=== PATIENT | male | born 1995 | race African-American/Black ===

== ENCOUNTER 2016-12-29 14:35 | Emergency (ER) | payer OTHER ==
[~2016-12-29] VITALS: Ht 175.3 cm; Wt 79.4 kg
[~2016-12-29 14:35] MED LIST: CETI10TA22 PO; PRED50TA PO
[2016-12-29 14:45] VITALS: BP 124/59
--- NOTE | 2016-12-29 15:17 | RAD ---
Right hand, 3 views, 12/29/2016: History: Injury, pain No acute fracture or dislocation is identified. The soft tissues are unremarkable. IMPRESSION: No acute bony abnormality is detected.
[2016-12-29] MEDS ORDERED: DICL50TA4 PO (15:30)
--- NOTE | 2016-12-29 15:31 | PHYS DOC ---
Past Medical History Past Medical History: No Pertinent History Past Surgical History: No Surgical History Alcohol Use: None Drug Use: None Adult General Chief Complaint Chief Complaint: HAND PROBLEM HPI HPI Patient is a 21 year old male with no significant medical history who presents with mild right hand pain specifically on the knuckles that began after he jammed his hand playing basketball. Patient is right-handed Review of Systems Review of Systems Constitutional: Denies fever or chills [] Musculoskeletal: Right hand pain Integument: Denies rash or skin lesions [] Neurologic: Denies headache, focal weakness or sensory changes [] Endocrine: Denies polyuria or polydipsia [] Allergies Allergies Allergies Coded Allergies Type Severity Reaction Last Updated Verified No Known Drug Allergies 01/15/15 No Physical Exam Physical Exam Constitutional: Well developed, well nourished, no acute distress, non-toxic appearance. [] Skin: Warm, dry, no erythema, no rash. [] Back: No tenderness, no CVA tenderness. [] Extremities: Right hand with no obvious deformity, small amount of soft tissue swelling noted along the right hand knuckles. Tenderness on palpation diffusely on the right hand knuckles. Full range of motion to the right hand including flexion and extension at the MIP DIP and PIP joints. Adequate radial medial and ulnar sensation to the right hand. Cap refill less than 2 seconds the right hand. Sensation intact to the right hand. +2 right radial pulse. Neurologic: Alert and oriented X 3, normal motor function, normal sensory function, no focal deficits noted. [] Psychologic: Affect normal, judgement normal, mood normal. [] Current Patient Data Vital Signs Vital Signs Date Time Temp Pulse Resp B/P (MAP) Pulse Ox O2 Delivery O2 Flow Rate FiO2 12/29/16 14:45 98.1 57 16 98 Room Air 98.1 EKG EKG [] Radiology/Procedures Radiology/Procedures [] Course & Med Decision Making Course & Med Decision Making Pertinent Labs and Imaging studies reviewed. (See chart for details) Patient is in the ED with complaints of right hand pain after jamming it playing basketball. Right hand x-rays interpreted by radiologist were negative for any acute findings. Patient probably sprained his right hand. Ice elevation encouraged. Discharged with diclofenac Dragon Disclaimer Dragon Disclaimer This electronic medical record was generated, in whole or in part, using a voice recognition dictation system. Departure Departure Impression: Primary Impression: Sprain of right hand Disposition: HOME, SELF-CARE Condition: STABLE Referrals: NO PCP (PCP) JEANETTE GREENBERG II, MD Follow-up in one week Patient Instructions: Joint Sprain Additional Instructions: You were seen with right hand sprain. Ice and elevate the extremity. Take the prescribed medicine as needed. Follow-up with your doctor or the provided doctor in one week. Scripts Diclofenac Sodium (DICLOFENAC SODIUM) 50 Mg Tablet.dr 1 TAB PO BID, #60 TAB 1 Refill Prov: CARLOS ESTRADA APRN 12/29/16 Problem Qualifiers Primary Impression: Sprain of right hand Encounter type: initial encounter Qualified Codes: S63.91XA - Sprain of unspecified part of right wrist and hand, initial encounter CARLOS ESTRADA APRN Dec 29, 2016 15:31
== END 2016-12-29 15:42 | disposition home or self-care (01) ==
LOC: ER 14:35
DX: S63.91XA Sprain of unspecified part of right wrist and hand, initial encounter (principal); W23.0XXA Caught, crushed, jammed, or pinched between moving objects, initial encounter; Y93.67 Activity, basketball; Y92.89 Other specified places as the place of occurrence of the external cause; Y99.8 Other external cause status
CPT/HCPCS: 73130; 99284

== ENCOUNTER 2017-09-02 17:54 | Emergency (ER) | payer OTHER ==
[2017-09-02] MEDS: ONDANSETRON ODT 4 MG TAB.RAPDIS. PO (18:47)
== END 2017-09-02 19:40 | disposition home or self-care (01) ==
LOC: ER 17:54
DX: R11.2 Nausea with vomiting, unspecified (principal); R19.7 Diarrhea, unspecified
CPT/HCPCS: 99283; Q0162

== ENCOUNTER 2018-02-19 10:33 | Emergency (ER) | payer OTHER ==
[~2018-02-19] VITALS: Ht 172.7 cm; Wt 74.8 kg
[~2018-02-19 10:33] MED LIST changes: +DICL50TA4 PO; +ONDA4TAB10 SL
[2018-02-19 11:01] VITALS: BP 133/75
--- NOTE | 2018-02-19 11:33 | RAD ---
Right shoulder, 3 views, 02/19/2018: HISTORY: Shoulder injury No fracture or dislocation is identified. The periarticular soft tissues are unremarkable. IMPRESSION: No significant abnormality is detected. Electronically signed by: Pancho Rodriguez MD (02/19/2018 11:30 AM) [facility]
[2018-02-19] MEDS ORDERED: NAPR-514 PO (11:52)
--- NOTE | 2018-02-19 11:52 | PHYS DOC ---
Past Medical History Past Medical History: No Pertinent History Past Surgical History: No Surgical History Alcohol Use: Occasionally Drug Use: None Adult General Chief Complaint Chief Complaint: SHOULDER INJURY HPI HPI Patient is a 22 year old [place] male who presents to the emergency Department today with complaints of right shoulder pain for the last week. Patient states he locked himself out of his house and then tried to push through the door using his right shoulder to apply force the door. He denies any numbness, tingling, or weakness of the extremities. States he has full range of motion however his pain increases with range of motion. Currently reports his pain as 8 out of 10 on the pain scale. He has tried taking ibuprofen at home with little relief of his symptoms Review of Systems Review of Systems Musculoskeletal: Denies back pain; reports R shoulder pain Integument: Denies rash, edema, or skin lesions [] Neurologic: Denies focal weakness or sensory changes [] Allergies Allergies Allergies Coded Allergies Type Severity Reaction Last Updated Verified No Known Drug Allergies 01/15/15 No Physical Exam Physical Exam Constitutional: Well developed, well nourished, no acute distress, non-toxic appearance. [] HENT: Normocephalic, atraumatic, bilateral external ears normal, nose normal. [ ] Eyes: PERRLA, conjunctiva normal, no discharge. [] Neck: Normal range of motion, no tenderness, supple, no stridor. [] Skin: Warm, dry, no erythema, no rash. [] Back: No tenderness Extremities: no cyanosis, no clubbing, ROM intact, no edema, R shoulder tenderness over the AC joint [] Neurologic: Alert and oriented X 3, normal motor function, normal sensory function, no focal deficits noted. [] Psychologic: Affect normal, judgement normal, mood normal. [] Current Patient Data Vital Signs Vital Signs Date Time Temp Pulse Resp B/P (MAP) Pulse Ox O2 Delivery O2 Flow Rate FiO2 02/19/18 11:01 98.6 56 20 133/75 (94) 99 Room Air 98.6 EKG EKG [] Radiology/Procedures Radiology/Procedures ATIENT: KENTONJAY Gamez BACCOUNT: [id number]#: [id number] : 1995 LOCATION: ER AGE: 22 SEX: M EXAM STATUS: REG ER ORD. PHYSICIAN: AURA ECKERT APRN REASON: shoulder pain x1 wk after trying to break door open w/shoulder PROCEDURE: SHOULDER 2+V RIGHT Right shoulder, 3 views, 02/19/2018: HISTORY: Shoulder injury No fracture or dislocation is identified. The periarticular soft tissues are unremarkable. IMPRESSION: No significant abnormality is detected. Electronically signed by: Pancho Rodriguez MD (02/19/2018 11:30 AM) [facility] DICTATED and SIGNED BY: PANCHO RODRIGUEZ MD DATE: 02/19/18 1129 [] Course & Med Decision Making Course & Med Decision Making Pertinent Labs and Imaging studies reviewed. (See chart for details) Patient is 22-year-old male who presented to the emergency room with complaints of right shoulder pain for the last week. X-ray was negative for any acute findings. He was placed in a sling. A prescription was written for naproxen and pt was advised to follow up with Dr. Thompson for further evaluation and treatment. Patient verbalized an understanding of home care, medications, follow -up, and return to ED instructions and was in agreement with the plan of care.] Dragon Disclaimer Dragon Disclaimer This electronic medical record was generated, in whole or in part, using a voice recognition dictation system. Departure Departure Impression: Primary Impression: Right shoulder pain Additional Impression: Right shoulder strain Disposition: 01 HOME, SELF-CARE Condition: STABLE Referrals: UNKNOWN PCP NAME (PCP) MATTEO THOMPSON MD Patient Instructions: Shoulder Sprain Additional Instructions: May take Tylenol in addition to the medication prescribed as needed for pain. Recommend application of ice or heat to sore areas needed for relief of your discomfort. Wear the sling provided in the ER, encourage early mobilization of shoulder to prevent frozen shoulder syndrome. Follow up with orthopedics, Dr. Thompson's address and phone number have been provided,or your primary care doctor for further evaluation of pain. Return to the emergency room if your symptoms worsen. Scripts Naproxen (NAPROXEN) 500 Mg Tablet 500 MG PO BID for 10 Days, #20 TAB 0 Refills Prov: AURA ECKERT APRN 02/19/18 Problem Qualifiers Primary Impression: Right shoulder pain Chronicity: acute Qualified Codes: M25.511 - Pain in right shoulder Additional Impression: Right shoulder strain Encounter type: initial encounter Qualified Codes: S46.911A - Strain of unspecified muscle, fascia and tendon at shoulder and upper arm level, right arm , initial encounter AURA ECKERT [employer] BU[employer]DER Feb 19, 2018 11:52
== END 2018-02-19 12:15 | disposition home or self-care (01) ==
LOC: ER 10:33
DX: S46.911A Strain of unspecified muscle, fascia and tendon at shoulder and upper arm level, right arm, initial encounter (principal); X50.0XXA Overexertion from strenuous movement or load, initial encounter; Y93.89 Activity, other specified; Y92.098 Other place in other non-institutional residence as the place of occurrence of the external cause; Y99.8 Other external cause status
CPT/HCPCS: 73030; 99284

== ENCOUNTER 2018-07-08 09:20 | Emergency (ER) | payer OTHER ==
[~2018-07-08] VITALS: Ht 172.7 cm; Wt 72.6 kg
[~2018-07-08 09:20] MED LIST changes: +NAPR-514 PO
[2018-07-08 10:55] VITALS: BP 129/77
[2018-07-08] MEDS ORDERED: HYDROcodone/APAP 5/325MG 1 TAB TABLET PO ONE (11:00)
[2018-07-08] MEDS ORDERED: PENI500T PO (11:03)
[2018-07-08] MEDS ORDERED: HYDR-3164 PO (11:03)
--- NOTE | 2018-07-08 11:03 | PHYS DOC ---
Past Medical History Past Medical History: No Pertinent History Past Surgical History: No Surgical History Alcohol Use: Occasionally Drug Use: None Adult General Chief Complaint Chief Complaint: DENTAL PROBLEM HPI HPI Patient is a 22 year old male who presents with right lower facial swelling with right lower facial dental abscess x 2 weeks. Review of Systems Review of Systems Constitutional: Denies fever or chills [] Eyes: Denies change in visual acuity, redness, or eye pain [] HENT: Denies nasal congestion or sore throat [] Respiratory: Denies cough or shortness of breath [] Cardiovascular: No additional information not addressed in HPI [] GI: Denies abdominal pain, nausea, vomiting, bloody stools or diarrhea [] : Denies dysuria or hematuria [] Musculoskeletal: Denies back pain or joint pain [] Integument: Denies rash or skin lesions [] Neurologic: Denies headache, focal weakness or sensory changes [] Endocrine: Denies polyuria or polydipsia [] All other systems were reviewed and found to be within normal limits, except as documented in this note. Allergies Allergies Allergies Coded Allergies Type Severity Reaction Last Updated Verified No Known Drug Allergies 01/15/15 No Physical Exam Physical Exam Constitutional: Well developed, well nourished, no acute distress, non-toxic appearance. [] HENT: Normocephalic, atraumatic, bilateral external ears normal, oropharynx moist, no oral exudates, nose normal. [] Eyes: PERRLA, EOMI, conjunctiva normal, no discharge. [] Neck: Normal range of motion, no tenderness, supple, no stridor. [] Cardiovascular:Heart rate regular rhythm, no murmur [] Lungs & Thorax: Bilateral breath sounds clear to auscultation [] Abdomen: Bowel sounds normal, soft, no tenderness, no masses, no pulsatile masses. [] Skin: Warm, dry, no erythema, no rash. [] Back: No tenderness, no CVA tenderness. [] Extremities: No tenderness, no cyanosis, no clubbing, ROM intact, no edema. [] Neurologic: Alert and oriented X 3, normal motor function, normal sensory function, no focal deficits noted. [] Psychologic: Affect normal, judgement normal, mood normal. [] Current Patient Data Vital Signs Vital Signs Date Time Temp Pulse Resp B/P (MAP) Pulse Ox O2 Delivery O2 Flow Rate FiO2 07/08/18 10:25 97.9 70 16 129/77 (94) 99 Room Air 97.9 EKG EKG [] Radiology/Procedures Radiology/Procedures [] Course & Med Decision Making Course & Med Decision Making Patient is a 22 year old male who presents with right lower facial swelling with right lower facial dental abscess. It is tender to palpation and there is some swelling of the gum. I didn't see a dental carry or broken teeth. Upon walking the room patient had his head up and tied around his face. I asked the patient to take a down psych if he has face and he did so and that when asked to open his mouth he could barely open his mouth. With inspection as it pulled his cheek out to look inside of his mouth that was painful. Afebrile. Alert and oriented. Skin pink warm and dry. Girlfriend is driving. Patient is given a dose of pain medication and prescription antibiotic along with dental resources. Patient is stable and in no distress. Dragon Disclaimer Dragon Disclaimer This electronic medical record was generated, in whole or in part, using a voice recognition dictation system. Departure Departure Impression: Primary Impression: Dental abscess Additional Impression: Pain, dental Disposition: HOME, SELF-CARE Condition: STABLE Referrals: NO PCP (PCP) Patient Instructions: Dental Abscess, Dental Pain Additional Instructions: Call a dentist to be seen . Take medication as prescribed. Scripts Penicillin V Potassium (PENICILLIN V POTASSIUM) 500 Mg Tablet 500 MG PO QID, #10 TAB 0 Refills Prov: RADHA BRIGHT APRN 07/08/18 Hydrocodone/Apap 5-325 (NORCO 5-325 TABLET) 1 Each Tablet 1 TAB PO PRN Q6HRS PRN for PAIN, #10 TAB 0 Refills Prov: RADHA BRIGHT APRN 07/08/18 Problem Qualifiers RADHA BRIGHT APRN Jul 08, 2018 11:03
[2018-07-08] MEDS ORDERED: PENICILLIN V K 250 MG TABLET. PO ONE (11:15)
[2018-07-08] MEDS ORDERED: PENICILLIN V K 250 MG TABLET. ONE (11:16)
== END 2018-07-08 11:10 | disposition home or self-care (01) ==
LOC: ER 09:20
DX: K04.7 Periapical abscess without sinus (principal)
CPT/HCPCS: 99283

== ENCOUNTER 2018-10-07 06:31 | Emergency (ER) | payer OTHER ==
[~2018-10-07] VITALS: Ht 172.7 cm; Wt 75.7 kg
[~2018-10-07 06:31] MED LIST changes: +HYDR-3164 PO; +PENI500T PO
[2018-10-07] MEDS ORDERED: LOPERAMIDE 2 MG CAPSULE PO STA (06:44)
[2018-10-07] MEDS ORDERED: IV NORMAL SALINE 1000ML BAG 1,000 ML IV SCH (06:44)
[2018-10-07] MEDS ORDERED: ONDANSETRON PF 4 MG/2 ML VIAL. IV ONE (06:45)
[2018-10-07] MEDS ORDERED: KETOROLAC 30 MG/ML VIAL. IV ONE (06:45)
--- NOTE | 2018-10-07 07:05 | PHYS DOC ---
Past Medical History Past Medical History: No Pertinent History Past Surgical History: No Surgical History Alcohol Use: Occasionally Drug Use: None Adult General Chief Complaint Chief Complaint: NAUSEA/VOMITING/DIARRHA HPI HPI Patient is a 23 year old male who presents with complaining of nausea and vomiting and diarrhea. Patient complaining of episodes of nausea and vomiting and diarrhea for the last 3 days with cramping abdominal pain and rated his pain 8/10. Patient states he ate some steak and concern for poisoning. Patient states he had 4-5 episodes of vomiting and diarrhea that usually happen in the morning or after eating. Patient denies fever and chills, sick contact, urinary symptom. Review of Systems Review of Systems Constitutional: Denies fever or chills [] Eyes: Denies change in visual acuity, redness, or eye pain [] HENT: Denies nasal congestion or sore throat [] Respiratory: Denies cough or shortness of breath [] Cardiovascular: No additional information not addressed in HPI [] GI: Reports abdominal pain, nausea, vomiting, diarrhea [] : Denies dysuria or hematuria [] Musculoskeletal: Denies back pain or joint pain [] Integument: Denies rash or skin lesions [] Neurologic: Denies headache, focal weakness or sensory changes [] Endocrine: Denies polyuria or polydipsia [] All other systems were reviewed and found to be within normal limits, except as documented in this note. Current Medications Current Medications Current Medications Medications (Trade) Dose Ordered Sig/[facility] Start Time Stop Time Status Last Admin Dose Admin Ketorolac Tromethamine (Toradol 30mg Vial) 30 mg 1X ONCE 10/07/18 06:45 10/07/18 06:57 DC 10/07/18 07:12 30 MG Loperamide HCl (Imodium) 4 mg 1X STAT 10/07/18 06:44 10/07/18 06:57 DC 10/07/18 07:13 4 MG Ondansetron HCl (Zofran) 4 mg 1X ONCE 10/07/18 06:45 10/07/18 06:57 DC 10/07/18 07:11 4 MG Potassium Chloride (Klor-Con) 40 meq 1X ONCE 10/07/18 07:45 10/07/18 07:46 UNV Sodium Chloride 1,000 ml @ 1,000 mls/hr Q1H 10/07/18 06:44 10/07/18 07:43 DC 10/07/18 07:10 1,000 MLS/HR Allergies Allergies Allergies Coded Allergies Type Severity Reaction Last Updated Verified No Known Drug Allergies 01/15/15 No Physical Exam Physical Exam Constitutional: Well developed, well nourished, mild distress, non-toxic appearance. [] HENT: Normocephalic, atraumatic, oropharynx dry. [] Eyes: PERRLA, EOMI, conjunctiva normal, no discharge. [] Neck: Normal range of motion, no tenderness, supple, no stridor. [] Cardiovascular:Heart rate regular rhythm, no murmur [] Lungs & Thorax: Bilateral breath sounds clear to auscultation [] Abdomen: Bowel sounds hyperactive, soft, no tenderness, no masses, no pulsatile masses. [] Skin: Warm, dry, no erythema, no rash. [] Back: No tenderness, no CVA tenderness. [] Extremities: No tenderness, no cyanosis, no clubbing, ROM intact, no edema. [] Neurologic: Alert and oriented X 3, normal motor function, normal sensory function, no focal deficits noted. [] Psychologic: Affect normal, judgement normal, mood normal. [] Current Patient Data Vital Signs Vital Signs Date Time Temp Pulse Resp B/P (MAP) Pulse Ox O2 Delivery O2 Flow Rate FiO2 10/07/18 06:37 98.1 131/76 (94) 99 Room Air 98.1 Lab Values Laboratory Tests Test 10/07/18 06:55 10/07/18 07:10 White Blood Count 5.1 x10^3/uL (4.0-11.0) Red Blood Count 4.92 x10^6/uL (4.30-5.70) Hemoglobin 14.4 g/dL (13.0-17.5) Hematocrit 43.7 % (39.0-53.0) Mean Corpuscular Volume 89 fL (79-100) Mean Corpuscular Hemoglobin 29 pg (25-35) Mean Corpuscular Hemoglobin Concent 33 g/dL (31-37) Red Cell Distribution Width 13.5 % (11.5-14.5) Platelet Count 175 x10^3/uL (140-400) Neutrophils (%) (Auto) 63 % (31-73) Lymphocytes (%) (Auto) 23 % (24-48) L Monocytes (%) (Auto) 12 % (0-9) H Eosinophils (%) (Auto) 2 % (0-3) Basophils (%) (Auto) 0 % (0-3) Neutrophils # (Auto) 3.2 x10^3uL (1.8-7.7) Lymphocytes # (Auto) 1.2 x10^3/uL (1.0-4.8) Monocytes # (Auto) 0.6 x10^3/uL (0.0-1.1) Eosinophils # (Auto) 0.1 x10^3/uL (0.0-0.7) Basophils # (Auto) 0.0 x10^3/uL (0.0-0.2) Sodium Level 139 mmol/L (136-145) Potassium Level 3.1 mmol/L (3.5-5.1) L Chloride Level 100 mmol/L (98-107) Carbon Dioxide Level 32 mmol/L (21-32) Anion Gap 7 (6-14) Blood Urea Nitrogen 12 mg/dL (8-26) Creatinine 1.1 mg/dL (0.7-1.3) Estimated GFR (Cockcroft-Gault) 99.5 BUN/Creatinine Ratio 11 (6-20) Glucose Level 111 mg/dL (70-99) H Calcium Level 8.8 mg/dL (8.5-10.1) Total Bilirubin 0.2 mg/dL (0.2-1.0) Aspartate Amino Transferase (AST) 20 U/L (15-37) Alanine Aminotransferase (ALT) 22 U/L (16-63) Alkaline Phosphatase 91 U/L (46-116) Total Protein 7.6 g/dL (6.4-8.2) Albumin 3.9 g/dL (3.4-5.0) Albumin/Globulin Ratio 1.1 (1.0-1.7) Lipase 222 U/L (73-393) Urine Collection Type Unknown Urine Color Yellow Urine Clarity Clear Urine pH 6.0 Urine Specific Gay >=1.030 Urine Protein Negative mg/dL (NEG-TRACE) Urine Glucose (UA) Negative mg/dL (NEG) Urine Ketones (Stick) Negative mg/dL (NEG) Urine Blood Negative (NEG) Urine Nitrite Negative (NEG) Urine Bilirubin Negative (NEG) Urine Urobilinogen Dipstick 0.2 mg/dL (0.2 mg/dL) Urine Leukocyte Esterase Negative (NEG) Urine RBC 0 /HPF (0-2) Urine WBC Rare /HPF (0-4) Urine Squamous Epithelial Cells Few /LPF Urine Bacteria 0 /HPF (0-FEW) Urine Mucus Marked /LPF Laboratory Tests 10/07/18 06:55 Laboratory Tests 10/07/18 06:55 EKG EKG [] Radiology/Procedures Radiology/Procedures [] Course & Med Decision Making Course & Med Decision Making Pertinent Labs reviewed. (See chart for details) Evaluation of patient in ER showed 23-year-old male patient with complaining of nausea and vomiting and diarrhea and abdominal cramping pain. Patient treated with IV fluid, Zofran, Toradol and Imodium with improvement of his condition. Patient tolerated oral intake. Labs was unremarkable except for potassium of 3.1 and patient had oral potassium. Plan discharge patient home with diagnose of viral gastroenteritis. Patient was advised to take liquid diet today and over -the-counter Imodium as needed for diarrhea. Dragon Disclaimer Dragon Disclaimer This electronic medical record was generated, in whole or in part, using a voice recognition dictation system. Departure Departure Impression: Primary Impression: Acute gastroenteritis Additional Impression: Hypokalemia Disposition: 01 HOME, SELF-CARE (@0 755) Condition: IMPROVED Referrals: NO PCP (PCP) Patient Instructions: Hypokalemia, Viral Gastroenteritis Additional Instructions: Drink plenty of liquids Follow-up with your primary care physician in 3-5 days Return to ER if not getting better May take [id number] Imodium as needed for diarrhea Scripts Ondansetron Hcl (ZOFRAN) 4 Mg Tablet 1 TAB PO PRN Q6-8HRS for nausea, #12 TAB Prov: ALEJANDRO MONACO MD 10/07/18 Hydrocodone/Apap 5-325 (NORCO 5-325 TABLET) 1 Each Tablet 1 TAB PO PRN Q6HRS PRN for PAIN, #10 TAB 0 Refills Prov: ALEJANDRO MONACO MD 10/07/18 Problem Qualifiers ALEJANDRO MONACO MD Oct 07, 2018 07:05
[2018-10-07 07:19] LABS: CALCIUM 8.8 mg/dL (8.5-10.1); CREATININE 1.1 mg/dL (0.7-1.3); GFR 99.5; POTASSIUM 3.1 mmol/L (3.5-5.1)
[2018-10-07 07:22] LABS: BILIRUBIN,URINE NEGATIVE (NEG); CLARITY,URINE CLEAR; COLOR,URINE YELLOW; NITRITE,URINE NEGATIVE (NEG); PROTEIN,URINE NEGATIVE (NEG-TRACE); UROBILINOGEN,URINE 0.2 mg/dL (0.2 mg/dL)
[2018-10-07 07:24] LABS: ALBUMIN 3.9 g/dL (3.4-5.0); ALBUMIN/GLOBULIN RATIO 1.1 (1.0-1.7); TOTAL BILIRUBIN 0.2 mg/dL (0.2-1.0); TOTAL PROTEIN 7.6 g/dL (6.4-8.2)
[2018-10-07 07:31] LABS: BASO % 0 % (0-3); EOS # 0.1 x10^3/uL (0.0-0.7); EOS % 2 % (0-3); HEMATOCRIT 43.7 % (39.0-53.0); HEMOGLOBIN 14.4 g/dL (13.0-17.5); LYMPH # 1.2 x10^3/uL (1.0-4.8); LYMPH % 23 % (24-48); MEAN CORPUSCULAR HEMOGLOBIN 29 pg (25-35); MEAN CORPUSCULAR HGB CONC 33 g/dL (31-37); MEAN CORPUSCULAR VOLUME 89 fL (79-100); MONO # 0.6 x10^3/uL (0.0-1.1); MONO % 12 % (0-9); NEUT # 3.2 x10^3uL (1.8-7.7); NEUT % 63 % (31-73); PLATELET COUNT 175 x10^3/uL (140-400); RED BLOOD COUNT 4.92 x10^6/uL (4.30-5.70); RED CELL DISTRIBUTION WIDTH 13.5 % (11.5-14.5); WHITE BLOOD COUNT 5.1 x10^3/uL (4.0-11.0)
[2018-10-07 07:32] LABS: BACTERIA,URINE 0 /HPF (0-FEW); RBC,URINE 0 /HPF (0-2); SQUAMOUS EPITHELIAL CELL,UR FEW /LPF; WBC,URINE RARE /HPF (0-4)
[2018-10-07 07:40] VITALS: BP 107/59
[2018-10-07] MEDS ORDERED: POTASSIUM CHLORIDE 20 MEQ TABLET.ER. PO ONE ×2 (07:45→07:49)
[2018-10-07] MEDS ORDERED: HYDR-3164 PO (07:56)
[2018-10-07] MEDS ORDERED: ONDA4TAB7 PO (07:56)
== END 2018-10-07 08:07 | disposition home or self-care (01) ==
LOC: ER 06:31
DX: K52.9 Noninfective gastroenteritis and colitis, unspecified (principal); E87.6 Hypokalemia
CPT/HCPCS: 36415; 80053; 81001; 83690; 85025; 96361; 96374; 96375; 99283; J1885; J2405; J7030

== ENCOUNTER 2019-12-11 21:56 | Emergency (ER) | payer SELFPAY ==
[~2019-12-11] VITALS: Ht 172.7 cm; Wt 81.8 kg
[~2019-12-11 21:56] MED LIST changes: -CETI10TA22 PO; +CETI10TA24 PO; +ONDA4TAB7 PO
[2019-12-11 22:05] VITALS: BP 148/72
--- NOTE | 2019-12-11 22:48 | PHYS DOC ---
Past Medical History Past Medical History: No Pertinent History Past Surgical History: No Surgical History Smoking Status: Current Every Day Smoker Additional Information: 0.25/PPD Alcohol Use: Occasionally Drug Use: None General Adult EDM: Chief Complaint: DENTAL PROBLEM HPI: HPI: Patient is a 24 year old male who presents with complaint of pain in his right lower jaw after having tooth extracted a few days ago. Patient states that he woke up this morning with a lot of pain and took some Tylenol PM which she states helped and then he slept most of the day. Patient states that he did not go into work today and is now presenting, needing work excuse and something for pain. [] Review of Systems: Review of Systems: Constitutional: Denies fever or chills. [] HENT: Positive right lower jaw pain. [] Respiratory: Denies cough or shortness of breath. [] Cardiovascular: Denies chest pain or edema. [] Integument: Denies rash. [] Neurologic: Denies headache, focal weakness or sensory changes. [] Heart Score: Risk Factors: Risk Factors: DM, Current or recent (<one month) smoker, HTN, HLP, family history of CAD, obesity. Risk Scores: Score 0 - 3: 2.5% MACE over next 6 weeks - Discharge Home Score 4 - 6: 20.3% MACE over next 6 weeks - Admit for Clinical Observation Score 7 - 10: 72.7% MACE over next 6 weeks - Early Invasive Strategies Allergies: Allergies: Allergies Coded Allergies Type Severity Reaction Last Updated Verified No Known Drug Allergies 01/15/15 No Physical Exam: PE: Constitutional: Well developed, well nourished, no acute distress, non-toxic appearance. [] HENT: Normocephalic, atraumatic, area of extraction appears clean with no evidence of swelling or infection. [] Eyes: PERRLA, EOMI, conjunctiva normal, no discharge. [] Neck: Normal range of motion, no tenderness, supple, no stridor. [] Cardiovascular: Regular rate and rhythm [] Lungs & Thorax: Bilateral breath sounds clear to auscultation [] Current Patient Data: Vital Signs: Vital Signs Date Time Temp Pulse Resp B/P (MAP) Pulse Ox O2 Delivery O2 Flow Rate FiO2 12/11/19 22:05 98.5 66 18 148/72 (97) 99 Room Air 98.5 EKG: EKG: [] Radiology/Procedures: Radiology/Procedures: [] Course & Med Decision Making: Course & Med Decision Making Pertinent Labs and Imaging studies reviewed. (See chart for details) [] Jreryon Disclaimer: Grey Disclaimer: This electronic medical record was generated, in whole or in part, using a voice recognition dictation system. Departure Departure Impression: Primary Impression: Pain, acute postoperative Disposition: 07 AGAINST MEDICAL ADVICE (A medical screening examination was performed on this patient and patient elected outpatient follow-up and lieu of paying $150 co-pay.) Condition: STABLE Referrals: NO PCP (PCP) Justicifation of Admission Dx: Justifications for Admission: Justification of Admission Dx: Comment: (Not applicable) CAROLE RIVERA Jr. DO Dec 11, 2019 22:48
== END 2019-12-11 23:05 | disposition home or self-care (01) ==
LOC: ER 21:56
DX: G89.18 Other acute postprocedural pain (principal); K08.89 Other specified disorders of teeth and supporting structures; R68.84 Jaw pain; F17.200 Nicotine dependence, unspecified, uncomplicated
CPT/HCPCS: 99281

== ENCOUNTER 2020-03-04 10:53 | Emergency (ER) | payer SELFPAY ==
[~2020-03-04] VITALS: Ht 172.7 cm; Wt 90.0 kg
[~2020-03-04 10:53] MED LIST changes: -CETI10TA24 PO; +CETI10TA74 PO
[2020-03-04 11:06] VITALS: BP 164/93
[2020-03-04] MEDS ORDERED: AMOXICILLIN/K CLAV 875/125MG TABLET. PO ONE (11:15)
[2020-03-04] MEDS ORDERED: DEXAMETHASONE 4 MG TABLET PO ONE (11:15)
[2020-03-04] MEDS ORDERED: PRED20TA PO (11:17)
[2020-03-04] MEDS ORDERED: AMOX1TAB61 PO (11:17)
[2020-03-04] MEDS ORDERED: CHLO15MO2 PO (11:17)
[2020-03-04] MEDS ORDERED: HYDR-3164 PO (11:17)
--- NOTE | 2020-03-04 11:17 | PHYS DOC ---
Past Medical History Past Medical History: No Pertinent History Past Surgical History: No Surgical History Smoking Status: Current Every Day Smoker Alcohol Use: Occasionally Drug Use: None General Adult EDM: Chief Complaint: DENTAL PROBLEM HPI: HPI: Patient is a 24 year old -[place] male presents with 2 days of acute mandibular swelling on the left. Patient has poor dentition and known dental disease. He reports an a 7 out of 10 nonradiating pain in his left jaw. Review of Systems: Review of Systems: Constitutional: Denies fever or chills Eyes: Denies redness or eye pain HENT: Denies nasal congestion or sore throat Respiratory: Denies cough or shortness of breath Cardiovascular: Denies chest pain or palpitations GI: Denies abdominal pain, nausea, or vomiting : Denies dysuria or hematuria Musculoskeletal: Denies back pain or joint pain Integument: Denies rash or skin lesions Neurologic: Denies headache, focal weakness or sensory changes Complete systems were reviewed and found to be within normal limits, except as documented in this note. Current Medications: Current Medications Medications (Trade) Dose Ordered Sig/Jim Start Time Stop Time Status Last Admin Dose Admin Amoxicillin/ Clavulanate Potassium (Augmentin 875/ 125mg) 1 tab 1X ONCE 03/04/20 11:15 03/04/20 11:16 UNV Dexamethasone (Decadron) 10 mg 1X ONCE 03/04/20 11:15 03/04/20 11:16 UNV Allergies: Allergies: Allergies Coded Allergies Type Severity Reaction Last Updated Verified No Known Drug Allergies 01/15/15 No Physical Exam: PE: Constitutional: Well developed, well nourished, no acute distress, non-toxic appearance HENT: Normocephalic, atraumatic cranial nerves II through XII grossly intact bilaterally. Substantial cracked dentition third molar on upper left row. Very worn down and apparently infected abscessed tooth second left lower molar. Substantial parotid swelling on left. Eyes: PERRL, EOMI, conjunctiva normal, no discharge Neck: Normal range of motion, no tenderness, supple Lungs & Thorax: Bilateral breath sounds clear to auscultation, no wheezing Abdomen: Soft, no tenderness Skin: Warm, dry, no erythema, no rash Back: No tenderness, no CVA tenderness Extremities: No tenderness, ROM intact, no edema Neurologic: Alert and oriented X 3, normal motor function, normal sensory function, no focal deficits noted Psychologic: Affect normal, judgment normal Current Patient Data: Vital Signs: Vital Signs Date Time Temp Pulse Resp B/P (MAP) Pulse Ox O2 Delivery O2 Flow Rate FiO2 03/04/20 11:06 97.8 72 18 164/93 (116) 100 Room Air 97.8 EKG: EKG: [] Radiology/Procedures: Radiology/Procedures: [] Course & Med Decision Making: Course & Med Decision Making 24-year-old -[place] male presents with dental abscess. Patient discharged home on oral antibiotics and a corticosteroid. Patient counseled on importance of presenting for dental work. Patient given a list of outpatient dentist to follow-up with, that are low cost or free. Dragon Disclaimer: Dragon Disclaimer: This electronic medical record was generated, in whole or in part, using a voice recognition dictation system. Departure Departure Impression: Primary Impression: Periapical abscess Additional Impressions: Dentalgia Dental caries Disposition: HOME, SELF-CARE Condition: STABLE Referrals: NO PCP (PCP) Patient Instructions: Dental Abscess, Dental Caries, Toothache-Brief Scripts Hydrocodone/Apap 5-325 (NORCO 5-325 TABLET) 1 Each Tablet 0.5-1 TAB PO PRN Q6HRS PRN for PAIN, #10 TAB 0 Refills Prov: JAY WATSON DO 03/04/20 Chlorhexidine Gluconate (PERIDEX) 15 Ml Mouthwash 15 ML PO BID for 5 Days, #473 ML 0 Refills Prov: JAY WATSON DO 03/04/20 Prednisone (PREDNISONE) 20 Mg Tablet 2 TAB PO DAILY, #8 TAB Start this prescription tomorrow, Thursday03/05/2020 Prov: JAY WATSON DO 03/04/20 Amoxicillin/Potassium Clav (AUGMENTIN 875-125 TABLET) 1 Each Tablet 1 TAB PO BID, #14 TAB Prov: JAY WATSON DO 03/04/20 Justicifation of Admission Dx: Justifications for Admission: Justification of Admission Dx: N/A JAY WATSON DO Mar 04, 2020 11:17
== END 2020-03-04 11:30 | disposition home or self-care (01) ==
LOC: ER 10:53
DX: K04.7 Periapical abscess without sinus (principal); K02.9 Dental caries, unspecified; K08.89 Other specified disorders of teeth and supporting structures; R60.0 Localized edema; F17.200 Nicotine dependence, unspecified, uncomplicated
CPT/HCPCS: 99283